=== PATIENT | female | born 1975 | race Caucasian/White ===

== ENCOUNTER 2017-06-20 14:40 | Outpatient (CLI) | payer OTHER ==
--- NOTE | 2017-06-20 15:21 | MMO ---
BILATERAL SCREENING MAMMOGRAM: DATE: 06/20/17 HISTORY: 42-year-old female for screening mammography. COMPARISON: None. FINDINGS: Bilateral MLO and CC views of the breasts show extremely dense breast parenchyma, which may obscure lesions on mammography. There is no evidence of suspicious mass, suspicious cluster of microcalcific ations, or area of architectural distortion. Interpretation of this mammogram was performed with the assistance of computer-aided detection. IMPRESSION: BIRADS 1: Negative Annual screening mammography is recommended. POS: [facility]
== END 2017-06-20 14:41 | disposition home or self-care (01) ==
LOC: SCSMAMMO 14:40
PROVIDERS: ATTEND Family Medicine
DX: Z12.31 Encounter for screening mammogram for malignant neoplasm of breast (principal)
CPT/HCPCS: 77067; G0202

== ENCOUNTER → 2025-07-14 | Day surgery (SDC) | payer OTHER ==
[~2025-07-14] MED LIST: Gadobenate Dimeglumine 2 ML, Sodium Chloride 0.9% 250 ML 10 ML, Iopamidol 8 ML, Lidocai... FS SCH; Sodium Bicarbonate 2.5 MEQ/5 ML SDV ONE
== END ==
LOC: RAD 11:53
PROVIDERS: ATTEND Family Medicine Sports Medicine
PROC: BQ00YZZ Plain Radiography of Right Hip using Other Contrast (ICD-10-PCS; principal; 2025-07-14)
DX: S73.191A Other sprain of right hip, initial encounter (principal); X58.XXXA Exposure to other specified factors, initial encounter
CPT/HCPCS: 27093; 77002; A9577; J0166; J7050; Q9967